=== PATIENT | female | born 1945 | race Caucasian/White ===

== ENCOUNTER 2022-10-03 23:05 | Inpatient (IN) | payer MEDICARE, OTHER ==
[~2022-10-03] VITALS: Ht 157.5 cm; Wt 40.7 kg
[2022-10-03 23:57] LABS: Basophils # (auto) 0 10 ^3/uL (0-0.2); Eosinophils # (auto) 0.4 10 ^3/uL (0-0.8); Mean Corpuscular Hgb Conc. 34.6 g/dL (32.0-36.0); Monocytes # (auto) 0.3 10 ^3/uL (0-1.3)
[2022-10-03 23:59] LABS: Basophils % (auto) 0.2 % (0.0-2.0); Eosinophils % (auto) 4.3 % (0.0-7.0); Hematocrit 36.8 % (36.0-46.0); Hemoglobin 12.7 g/dL (12.2-16.2); Lymphocytes % (auto) 22.5 % (10.0-50.0); Mean Corpuscular Hemoglobin 34.8 pg (28.0-32.0); Mean Corpuscular Volume 100.5 fL (80.0-100.0); Monocytes % (auto) 3.7 % (0.0-12.0); Neutrophils # (auto) 6.2 10 ^3/uL (1.6-8.6); Neutrophils % (auto) 69.3 % (37.0-80.0); Red Blood Cells 3.66 10^6/uL (4.0-5.20); Red Cell Distribution Width 12.9 % (11.8-14.3); White Blood Cell 8.9 10^3/uL (4.4-10.8)
[2022-10-04 00:05] LABS: Albumin 3.4 g/dL (3.4-5.0); BUN/Creatinine Ratio 34.4 (10.0-20.0); Calcium 9.5 mg/dL (8.5-10.1); Magnesium 2.2 mg/dL (1.6-2.6); Potassium 4.1 mmol/L (3.5-5.1)
[2022-10-04 00:07] LABS: Bilirubin, Total 0.2 mg/dL (0.2-1.0); Total Protein 6.7 g/dL (6.4-8.2)
[2022-10-04 00:13] LABS: INR 0.9 (0.9-1.15); Partial Thromboplastin Time 22.6 sec (24.6-33.4)
[2022-10-04] MEDS ORDERED: methylPREDNISolone SOD SUCC 125 MG/2 ML VL IV ONE (01:45)
[2022-10-04 01:58] LABS: Urine Amorphous Crystal FEW /hpf (None Seen); Urine Bacteria NONE SEEN /hpf (None Seen); Urine Blood Negative /uL (Negative); Urine Specific Gravity 1.015 (1.001-1.035); Urine WBC <1 /hpf (0 - 5)
[2022-10-04] MEDS ORDERED: MORPHINE SULFATE INJ 2 MG/ml SYRG IV PRN (02:30)
[2022-10-04] MEDS ORDERED: ALBUTEROL SULF 2.5 MG/0.5ML(0.5%) NEB SOLN NEB PRN (02:30)
[2022-10-04] MEDS ORDERED: ACETAMINOPHEN 325 MG TAB PO PRN ×2 (02:30)
[2022-10-04] MEDS ORDERED: NITROGLYCERIN 0.4 MG SL TAB SL PRN (02:30)
[2022-10-04] MEDS: ONDANSETRON HCL 4 MG/2 ML VIAL IV PRN ×2 (04:24→15:45)
[2022-10-04] MEDS: TEMAZEPAM 15 MG CAP PO PRN ×2 (04:25→23:00)
[2022-10-04] MEDS: PARoxetine 20 MG TAB PO SCH (09:26)
[2022-10-04] MEDS: ENOXAPARIN SOD 40 MG/0.4 ML SYRINGE SC SCH (09:30)
[2022-10-04] MEDS ORDERED: PANTOPRAZOLE 40 MG TAB PO SCH (10:00)
[2022-10-04] MEDS ORDERED: MORPHINE SULF 15mg ER tab PO ONE (10:45)
[2022-10-04 11:10] VITALS: BP 166/119
[2022-10-04] MEDS: MORPHINE SULF 15mg ER tab PO SCH ×2 (13:49→22:48)
[2022-10-04 22:00] VITALS: BP 140/70
[2022-10-05] MEDS ORDERED: LORA0.5T20 PO (00:31)
[2022-10-05] MEDS ORDERED: PROC10TA2 (00:31)
[2022-10-05] MEDS ORDERED: MORP1TAB12 PO (00:31)
[2022-10-05] MEDS ORDERED: DIVA250T4 PO (00:34)
[2022-10-05] MEDS ORDERED: CHOL1TAB42 PO (00:34)
[2022-10-05 05:00] VITALS: BP 125/52
[2022-10-05] MEDS: MORPHINE SULF 15mg ER tab PO SCH ×2 (05:35→14:00)
[2022-10-05 09:05] VITALS: BP 120/74
[2022-10-05] MEDS: ENOXAPARIN SOD 40 MG/0.4 ML SYRINGE SC SCH (09:28)
[2022-10-05] MEDS: PARoxetine 20 MG TAB PO SCH (09:28)
== END 2022-10-05 14:50 | disposition home or self-care (01) | DRG 313 ==
LOC: EDBD 23:05 → ER 23:05 → TELE 10-04 02:22 → TELE-CENTR 10-04 21:10
PROVIDERS: ADMIT Nurse Practitioner; ATTEND Internal Medicine Geriatric Medicine
DX: R07.89 Other chest pain (principal); J96.10 Chronic respiratory failure, unspecified whether with hypoxia or hypercapnia; I49.1 Atrial premature depolarization; R00.2 Palpitations; F41.1 Generalized anxiety disorder; I95.9 Hypotension, unspecified; Z20.822 Contact with and (suspected) exposure to COVID-19; Z82.0 Family history of epilepsy and other diseases of the nervous system; Z85.3 Personal history of malignant neoplasm of breast; Z90.13 Acquired absence of bilateral breasts and nipples; Z99.81 Dependence on supplemental oxygen; Z88.2 Allergy status to sulfonamides; Z90.49 Acquired absence of other specified parts of digestive tract; G40.909 Epilepsy, unspecified, not intractable, without status epilepticus; J44.9 Chronic obstructive pulmonary disease, unspecified
CPT/HCPCS: 36415; 71045; 80053; 81001; 83735; 83880; 84443; 84484; 85025; 85379; 85610; 85730; 87426; 93005; 93306; G0378; J2405

== ENCOUNTER 2023-04-25 17:01 | Inpatient (IN) | payer OTHER ==
[~2023-04-25] VITALS: Ht 154.9 cm; Wt 41.8 kg
[~2023-04-25 17:01] MED LIST: CHOL1TAB42 PO; DIVA250T4 PO; LORA-1121 PO; MORP1TAB12 PO; PROC10TA6
[2023-04-25 17:30] VITALS: PULSE 117; RESP 22; O2SAT 96
[2023-04-25] MEDS ORDERED: methylPREDNISolone SOD SUCC 40 MG/ML VL IV ONE (17:30)
[2023-04-25] MEDS ORDERED: IPRATROPIUM BROM 0.5 MG/2.5ML INH SOL HHN ONE (17:30)
[2023-04-25] MEDS ORDERED: ALBUTEROL SULF 2.5 MG/0.5ML(0.5%) NEB SOLN HHN ONE (17:30)
[2023-04-25 18:11] LABS: Basophils # (auto) 0 10 ^3/uL (0-0.2); Eosinophils # (auto) 0.1 10 ^3/uL (0-0.8); Hemoglobin 12.3 g/dL (12.2-16.2); Lymphocytes # (auto) 1.7 10 ^3/uL (0.4-5.4); Lymphocytes % (auto) 12.1 % (10.0-50.0); Mean Corpuscular Hemoglobin 34.1 pg (28.0-32.0); Monocytes # (auto) 0.6 10 ^3/uL (0-1.3); Monocytes % (auto) 4.2 % (0.0-12.0); Neutrophils % (auto) 82.5 % (37.0-80.0); Red Blood Cells 3.62 10^6/uL (4.0-5.20); Red Cell Distribution Width 12.4 % (11.8-14.3)
[2023-04-25 18:12] LABS: Basophils % (auto) 0.2 % (0.0-2.0); Hematocrit 36.1 % (36.0-46.0); Mean Corpuscular Hgb Conc. 34.2 g/dL (32.0-36.0); Mean Corpuscular Volume 99.7 fL (80.0-100.0); Neutrophils # (auto) 11.4 10 ^3/uL (1.6-8.6); White Blood Cell 13.8 10^3/uL (4.4-10.8)
[2023-04-25 18:31] LABS: Alanine Aminotransferase 10 U/L (7-40); Albumin 4.2 g/dL (3.2-4.8); Alkaline Phosphatase 71 U/L (46-116); Anion Gap 8 (5-15); Aspartate Aminotransferase 17 U/L (13-40); BUN/Creatinine Ratio 20.3 (10.0-20.0); Bilirubin, Total 0.2 mg/dL (0.2-1.0); Blood Urea Nitrogen 13 mg/dL (9-23); Calcium 10.1 mg/dL (8.7-10.4); Carbon Dioxide 28 mmol/L (20-30); Chloride 104 mmol/L (98-107); Glucose 143 mg/dL (74-106); Magnesium 1.8 mg/dL (1.6-2.6); Potassium 4.1 mmol/L (3.5-5.1); Sodium 140 mmol/L (136-145); Total Protein 6.6 g/dL (5.7-8.2)
[2023-04-25 19:54] VITALS: PULSE 108; RESP 12; O2SAT 97
[2023-04-25] MEDS ORDERED: cefTRIAXone 1GM/50ML D5W 50 ML IV ONE (20:45)
[2023-04-25] MEDS ORDERED: DOCUSATE SOD 100 MG CAP PO PRN (20:45)
[2023-04-25] MEDS ORDERED: MORPHINE SULFATE INJ 2 MG/ml SYRG IV PRN (20:45)
[2023-04-25] MEDS ORDERED: NITROGLYCERIN 0.4 MG SL TAB SL PRN (20:45)
[2023-04-25] MEDS ORDERED: ACETAMINOPHEN 325 MG TAB PO PRN (20:45)
[2023-04-25] MEDS ORDERED: HYDROcodone-ACET 5/325MG TAB PO PRN (20:45)
[2023-04-25] MEDS ORDERED: PARO1TAB33 PO (20:47)
[2023-04-25] MEDS ORDERED: DIVA125C8 PO (20:47)
[2023-04-25] MEDS ORDERED: MORP15TA PO (20:47)
[2023-04-25] MEDS ORDERED: LORazepam 0.5 MG TAB PO PRN (21:00)
[2023-04-25] MEDS: ONDANSETRON HCL 4 MG/2 ML VIAL IV PRN (21:17)
[2023-04-25] MEDS: MORPHINE SULFATE INJ 2 MG/ml SYRG IV PRN (21:18)
[2023-04-25 21:52] LABS: Urine Bacteria NONE SEEN /hpf (None Seen); Urine Blood Negative /uL (Negative); Urine Clarity Clear (Clear); Urine Color Yellow (Yellow); Urine Protein, UAD Negative (Negative); Urine Specific Gravity 1.017 (1.001-1.035); Urine Urobilinogen Normal (Negative); Urine WBC <1 /hpf (0 - 5); Urine pH 5.5 (5.0-8.0)
[2023-04-25] MEDS: DIVALPROEX SODIUM 125 MG PO SCH (22:00)
[2023-04-25 22:59] VITALS: BP 118/52; PULSE 102; RESP 20; TEMP 98.4; O2SAT 98
[2023-04-25] MEDS: methylPREDNISolone SOD SUCC 40 MG/ML VL IV SCH (23:10)
[2023-04-26] VITALS (12 sets, daily range): BP systolic 118–156; BP diastolic 42–86; PULSE 82–117; RESP 16–18; TEMP 97–98.9; O2SAT 94–100
[2023-04-26] MEDS: MORPHINE SULFATE INJ 2 MG/ml SYRG IV PRN ×2 (01:58→08:27)
[2023-04-26 06:24] LABS: Alkaline Phosphatase 59 U/L (46-116); Anion Gap 7 (5-15); Aspartate Aminotransferase 20 U/L (13-40); BUN/Creatinine Ratio 11.8 (10.0-20.0); Basophils # (auto) 0 10 ^3/uL (0-0.2); Blood Urea Nitrogen 8 mg/dL (9-23); Calcium 9.9 mg/dL (8.7-10.4); Carbon Dioxide 24 mmol/L (20-30); Chloride 104 mmol/L (98-107); Eosinophils # (auto) 0 10 ^3/uL (0-0.8); Glucose 141 mg/dL (74-106); Hemoglobin 11.4 g/dL (12.2-16.2); Monocytes % (auto) 0.6 % (0.0-12.0); Potassium 4.5 mmol/L (3.5-5.1); White Blood Cell 8.1 10^3/uL (4.4-10.8)
[2023-04-26 06:25] LABS: Bilirubin, Total 0.2 mg/dL (0.2-1.0); Total Protein 6.5 g/dL (5.7-8.2)
[2023-04-26 06:26] LABS: Basophils % (auto) 0.1 % (0.0-2.0); Lymphocytes # (auto) 1.1 10 ^3/uL (0.4-5.4); Lymphocytes % (auto) 13.5 % (10.0-50.0); Mean Corpuscular Hemoglobin 35.5 pg (28.0-32.0); Mean Corpuscular Hgb Conc. 34.7 g/dL (32.0-36.0); Mean Corpuscular Volume 102.4 fL (80.0-100.0); Monocytes # (auto) 0 10 ^3/uL (0-1.3); Neutrophils # (auto) 6.9 10 ^3/uL (1.6-8.6); Neutrophils % (auto) 85.8 % (37.0-80.0); Red Blood Cells 3.22 10^6/uL (4.0-5.20); Red Cell Distribution Width 12.7 % (11.8-14.3)
[2023-04-26] MEDS: DIVALPROEX SODIUM 125 MG PO SCH (06:30)
[2023-04-26] MEDS: LEVALBUTEROL HCL 1.25 MG/3 ML NEB NEB SCH ×5 (06:32→22:51)
[2023-04-26] MEDS: IPRATROPIUM BROM 0.5 MG/2.5ML INH SOL NEB SCH ×5 (06:32→22:51)
[2023-04-26 06:37] LABS: Alanine Aminotransferase < 9 U/L (7-40); Sodium 135 mmol/L (136-145)
[2023-04-26 08:14] LABS: Macrocytosis Slight; Platelet Estimate Decreased
[2023-04-26] MEDS: methylPREDNISolone SOD SUCC 40 MG/ML VL IV SCH ×2 (08:26→22:25)
[2023-04-26] MEDS: cefTRIAXone 1GM/50ML D5W 50 ML IV SCH (08:27)
[2023-04-26] MEDS: PARoxetine 20 MG TAB PO SCH (08:27)
[2023-04-26] MEDS: ONDANSETRON HCL 4 MG/2 ML VIAL IV PRN (09:17)
[2023-04-26] MEDS ORDERED: PANTOPRAZOLE 40 MG TAB PO SCH (10:00)
[2023-04-26] MEDS: MORPHINE SULF 15mg ER tab PO SCH ×2 (11:30→22:25)
[2023-04-26] MEDS: LORazepam 0.5 MG TAB PO PRN (12:47)
[2023-04-26] MEDS ORDERED: CHOL1TAB28 PO (16:36)
[2023-04-26] MEDS ORDERED: PROC10TA6 PO (16:36)
[2023-04-26] MEDS ORDERED: MORP15TA PO (16:36)
[2023-04-26] MEDS ORDERED: LORA-1121 PO (16:36)
[2023-04-26] MEDS ORDERED: DIVA250T12 PO (16:36)
[2023-04-26] MEDS ORDERED: PAR20T PO (16:36)
[2023-04-27] VITALS (12 sets, daily range): BP systolic 108–141; BP diastolic 50–61; PULSE 66–144; RESP 16–20; TEMP 98.3–98.5; O2SAT 95–100
[2023-04-27] MEDS ORDERED: DIGOXIN (250MCG/ML) 2 ML AMPULE ONE (09:34)
[2023-04-27] MEDS: cefTRIAXone 1GM/50ML D5W 50 ML IV SCH (09:42)
[2023-04-27] MEDS: LORazepam 0.5 MG TAB PO PRN ×2 (09:42→20:39)
[2023-04-27] MEDS: methylPREDNISolone SOD SUCC 40 MG/ML VL IV SCH ×2 (09:42→22:33)
[2023-04-27] MEDS: PARoxetine 20 MG TAB PO SCH (09:42)
[2023-04-27] MEDS: MORPHINE SULF 15mg ER tab PO SCH ×2 (10:00→22:34)
[2023-04-27] MEDS: LEVALBUTEROL HCL 1.25 MG/3 ML NEB NEB SCH (13:35)
[2023-04-27] MEDS: IPRATROPIUM BROM 0.5 MG/2.5ML INH SOL NEB SCH ×3 (13:35→23:09)
[2023-04-27] MEDS ORDERED: METOPROLOL SUCCINATE XL 50 MG TAB PO ONE (16:15)
[2023-04-27] MEDS: APIXABAN 5 MG TAB PO SCH (22:33)
[2023-04-28] VITALS (7 sets, daily range): BP systolic 127–132; BP diastolic 48–58; PULSE 53–97; RESP 14–18; TEMP 97.7–98.2; O2SAT 96–100
[2023-04-28] MEDS: IPRATROPIUM BROM 0.5 MG/2.5ML INH SOL NEB SCH ×2 (07:57→13:55)
[2023-04-28] MEDS: methylPREDNISolone SOD SUCC 40 MG/ML VL IV SCH (09:19)
[2023-04-28] MEDS: APIXABAN 5 MG TAB PO SCH (09:20)
[2023-04-28] MEDS: MORPHINE SULF 15mg ER tab PO SCH (09:20)
[2023-04-28] MEDS: cefTRIAXone 1GM/50ML D5W 50 ML IV SCH (09:20)
[2023-04-28] MEDS: PARoxetine 20 MG TAB PO SCH (09:21)
[2023-04-28] MEDS ORDERED: METOPROLOL SUCCINATE XL 50 MG TAB PO SCH (10:00)
[2023-04-28] MEDS ORDERED: MORP1CAP9 PO ×2 (11:04)
[2023-04-28] MEDS ORDERED: METH4PAK PO (11:04)
[2023-04-28] MEDS ORDERED: LORA-1121 PO (11:04)
[2023-04-28] MEDS ORDERED: METO25TA36 PO (11:04)
[2023-04-28] MEDS ORDERED: APIX5TAB PO (11:04)
[2023-04-28] MEDS ORDERED: MORP1TAB12 PO (15:23)
== END 2023-04-28 16:30 | disposition home or self-care (01) | DRG 189 ==
LOC: EDBD 17:01 → ER 17:01 → TELE 20:42 → TELE-EAST 23:32
PROVIDERS: ADMIT Nurse Practitioner Family; ATTEND Internal Medicine Geriatric Medicine
DX: J96.20 Acute and chronic respiratory failure, unspecified whether with hypoxia or hypercapnia (principal); J44.1 Chronic obstructive pulmonary disease with (acute) exacerbation; R64 Cachexia; Z68.1 Body mass index [BMI] 19.9 or less, adult; G40.909 Epilepsy, unspecified, not intractable, without status epilepticus; F32.A Depression, unspecified; G89.4 Chronic pain syndrome; I48.0 Paroxysmal atrial fibrillation; Z90.13 Acquired absence of bilateral breasts and nipples; Z99.81 Dependence on supplemental oxygen; Z85.3 Personal history of malignant neoplasm of breast; Z90.49 Acquired absence of other specified parts of digestive tract
CPT/HCPCS: 36415; 71045; 74176; 80053; 80164; 81001; 83735; 83880; 84484; 85025; 87040; 87086; 93005; 93306; 94640; 97110; 97116; 97163; 97530; G0378; J0696; J2405

== ENCOUNTER 2023-06-10 14:02 | Inpatient (IN) | payer OTHER ==
[~2023-06-10] VITALS: Ht 154.9 cm; Wt 87.7 kg
[~2023-06-10 14:02] MED LIST changes: +APIX5TAB PO; +CHOL1TAB28 PO; -CHOL1TAB42 PO; +DIVA250T12 PO; -DIVA250T4 PO; +METH4PAK PO; +METO25TA36 PO; +MORP15TA PO; +PAR20T PO; -PROC10TA6; +PROC10TA6 PO
[2023-06-10 14:38] LABS: Basophils # (auto) 0 10 ^3/uL (0-0.2); Basophils % (auto) 0.4 % (0.0-2.0); Eosinophils # (auto) 0.4 10 ^3/uL (0-0.8); Eosinophils % (auto) 4.5 % (0.0-7.0); Lymphocytes # (auto) 2.1 10 ^3/uL (0.4-5.4); Monocytes # (auto) 0.4 10 ^3/uL (0-1.3); Monocytes % (auto) 4.5 % (0.0-12.0); Red Cell Distribution Width 12.8 % (11.8-14.3)
[2023-06-10 14:40] LABS: Hemoglobin 12.2 g/dL (12.2-16.2); Lymphocytes % (auto) 24.9 % (10.0-50.0); Mean Corpuscular Hemoglobin 33.6 pg (28.0-32.0); Mean Corpuscular Hgb Conc. 32.9 g/dL (32.0-36.0); Mean Corpuscular Volume 102.1 fL (80.0-100.0); Neutrophils # (auto) 5.5 10 ^3/uL (1.6-8.6); Neutrophils % (auto) 65.7 % (37.0-80.0); Red Blood Cells 3.62 10^6/uL (4.0-5.20); White Blood Cell 8.4 10^3/uL (4.4-10.8)
[2023-06-10 14:55] LABS: Albumin 3.9 g/dL (3.2-4.8); Alkaline Phosphatase 57 U/L (46-116); Anion Gap 5 (5-15); Aspartate Aminotransferase 16 U/L (13-40); BUN/Creatinine Ratio 19.7 (10.0-20.0); Blood Urea Nitrogen 12 mg/dL (9-23); Calcium 9.4 mg/dL (8.7-10.4); Carbon Dioxide 28 mmol/L (20-30); Chloride 106 mmol/L (98-107); Glucose 106 mg/dL (74-106); Potassium 4.3 mmol/L (3.5-5.1); Sodium 139 mmol/L (136-145)
[2023-06-10 14:56] LABS: Alanine Aminotransferase < 9 U/L (7-40); Bilirubin, Total 0.3 mg/dL (0.2-1.0); Total Protein 5.8 g/dL (5.7-8.2)
[2023-06-10 15:42] LABS: INR 0.98 (0.9-1.15); Prothrombin Time 10.3 sec (9.3-11.8)
[2023-06-10] MEDS ORDERED: methylPREDNISolone SOD SUCC 125 MG/2 ML VL IV ONE (18:00)
[2023-06-10] MEDS ORDERED: DOCUSATE SOD 100 MG CAP PO PRN (18:00)
[2023-06-10] MEDS ORDERED: MORPHINE SULFATE 4 MG/ML SYR/VIAL IV ONE (20:30)
[2023-06-10] MEDS: ONDANSETRON HCL 4 MG/2 ML VIAL IV PRN (20:47)
[2023-06-10] MEDS: APIXABAN 5 MG TAB PO SCH (21:41)
[2023-06-10] MEDS: MORPHINE SULF 15mg ER tab PO SCH (21:41)
[2023-06-10 22:39] LABS: Rapid Influenza A Negative (Negative); Rapid Influenza B Negative (Negative)
[2023-06-10 22:40] LABS: COVID19 ANTIGEN SOFIA FIA NEGATIVE (NEGATIVE)
[2023-06-11] VITALS (7 sets, daily range): BP systolic 109–121; BP diastolic 60–97; PULSE 62–121; RESP 16–18; TEMP 97.7–98.4; O2SAT 95–100
[2023-06-11 04:31] LABS: Basophils # (auto) 0 10 ^3/uL (0-0.2); Basophils % (auto) 0.1 % (0.0-2.0); Eosinophils # (auto) 0 10 ^3/uL (0-0.8); Hematocrit 36.8 % (36.0-46.0); Hemoglobin 12.4 g/dL (12.2-16.2); Lymphocytes # (auto) 1.1 10 ^3/uL (0.4-5.4); Mean Corpuscular Hemoglobin 33.8 pg (28.0-32.0); Mean Corpuscular Hgb Conc. 33.8 g/dL (32.0-36.0); Mean Corpuscular Volume 99.9 fL (80.0-100.0); Monocytes # (auto) 0 10 ^3/uL (0-1.3); Monocytes % (auto) 0.4 % (0.0-12.0); Neutrophils # (auto) 5.6 10 ^3/uL (1.6-8.6); Neutrophils % (auto) 83.5 % (37.0-80.0); Red Blood Cells 3.68 10^6/uL (4.0-5.20); Red Cell Distribution Width 12.8 % (11.8-14.3); White Blood Cell 6.7 10^3/uL (4.4-10.8)
[2023-06-11 05:03] LABS: Albumin 4.5 g/dL (3.2-4.8); Alkaline Phosphatase 63 U/L (46-116); Anion Gap 4 (5-15); Aspartate Aminotransferase 14 U/L (13-40); Bilirubin, Total 0.5 mg/dL (0.2-1.0); Blood Urea Nitrogen 13 mg/dL (9-23); Carbon Dioxide 30 mmol/L (20-30); Chloride 102 mmol/L (98-107); Glucose 146 mg/dL (74-106); Potassium 4.9 mmol/L (3.5-5.1); Sodium 136 mmol/L (136-145)
[2023-06-11 05:04] LABS: Alanine Aminotransferase < 9 U/L (7-40)
[2023-06-11] MEDS: methylPREDNISolone SOD SUCC 40 MG/ML VL IV SCH ×3 (07:25→21:36)
[2023-06-11] MEDS: PANTOPRAZOLE 40 MG/10 ML VIAL INJ IV SCH (10:39)
[2023-06-11] MEDS: PARoxetine 20 MG TAB PO SCH (10:40)
[2023-06-11] MEDS: CHOLECALCIFEROL (VITD3) 2,000 UNIT CAP/TAB PO SCH (10:41)
[2023-06-11] MEDS: APIXABAN 5 MG TAB PO SCH ×2 (10:42→21:36)
[2023-06-11] MEDS: MORPHINE SULF 15mg ER tab PO SCH ×2 (10:42→21:36)
[2023-06-11] MEDS: METOPROLOL SUCCINATE XL 50 MG TAB PO SCH (10:45)
[2023-06-11] MEDS: PROCHLORPERAZINE MALEATE 10 MG TAB PO SCH (12:27)
[2023-06-12 05:00] VITALS: BP 107/46; PULSE 69; RESP 15; TEMP 98.3; O2SAT 100
[2023-06-12] MEDS: methylPREDNISolone SOD SUCC 40 MG/ML VL IV SCH ×2 (05:31→14:09)
[2023-06-12 08:00] VITALS: BP 120/70; PULSE 61; PULSE 71; RESP 18; TEMP 98.3; O2SAT 98
[2023-06-12] MEDS ORDERED: ALBUTEROL MEDNEB 2.5 mg/3ml NEB NEB PRN (08:30)
[2023-06-12] MEDS ORDERED: IPRATROPIUM BROM 0.5 MG/2.5ML INH SOL NEB PRN (08:30)
[2023-06-12] MEDS: ONDANSETRON HCL 4 MG/2 ML VIAL IV PRN (08:32)
[2023-06-12 09:00] VITALS: BP 120/70; PULSE 71; RESP 18; TEMP 98.3; O2SAT 98
[2023-06-12] MEDS ORDERED: METH4PAK PO (09:54)
[2023-06-12] MEDS ORDERED: LORazepam 0.5 MG TAB PO PRN (10:00)
[2023-06-12 10:05] VITALS: BP 120/70; PULSE 71; RESP 18; TEMP 98.3; O2SAT 98
[2023-06-12 10:16] LABS: Chloride 105 mmol/L (98-107); Potassium 4.2 mmol/L (3.5-5.1); Sodium 139 mmol/L (136-145)
[2023-06-12 10:17] LABS: Anion Gap 9 (5-15); Calcium 10.2 mg/dL (8.5-10.1); Carbon Dioxide 25 mmol/L (20-30)
[2023-06-12 10:19] LABS: Basophils # (auto) 0 10 ^3/uL (0-0.2); Basophils % (auto) 0.1 % (0.0-2.0); Eosinophils # (auto) 0 10 ^3/uL (0-0.8); Hematocrit 33.9 % (36.0-46.0); Hemoglobin 11.2 g/dL (12.2-16.2); Lymphocytes # (auto) 0.8 10 ^3/uL (0.4-5.4); Lymphocytes % (auto) 5.6 % (10.0-50.0); Mean Corpuscular Hemoglobin 33.7 pg (28.0-32.0); Mean Corpuscular Hgb Conc. 33.2 g/dL (32.0-36.0); Mean Corpuscular Volume 101.5 fL (80.0-100.0); Monocytes # (auto) 0.3 10 ^3/uL (0-1.3); Monocytes % (auto) 1.8 % (0.0-12.0); Neutrophils # (auto) 13.6 10 ^3/uL (1.6-8.6); Neutrophils % (auto) 92.5 % (37.0-80.0); Red Blood Cells 3.34 10^6/uL (4.0-5.20); Red Cell Distribution Width 12.9 % (11.8-14.3); White Blood Cell 14.7 10^3/uL (4.4-10.8)
[2023-06-12 10:22] LABS: BUN/Creatinine Ratio 29.3 (10.0-20.0); Blood Urea Nitrogen 22 mg/dL (9-23); Glucose 163 mg/dL (74-106)
[2023-06-12] MEDS: CHOLECALCIFEROL (VITD3) 2,000 UNIT CAP/TAB PO SCH (11:00)
[2023-06-12] MEDS: PROCHLORPERAZINE MALEATE 10 MG TAB PO SCH (11:00)
[2023-06-12] MEDS ORDERED: UMEC1AER IN (11:00)
[2023-06-12] MEDS: PARoxetine 20 MG TAB PO SCH (11:01)
[2023-06-12] MEDS: MORPHINE SULF 15mg ER tab PO SCH (11:01)
[2023-06-12] MEDS: APIXABAN 5 MG TAB PO SCH (11:01)
[2023-06-12] MEDS: PANTOPRAZOLE 40 MG/10 ML VIAL INJ IV SCH (11:02)
[2023-06-12] MEDS: METOPROLOL SUCCINATE XL 50 MG TAB PO SCH (11:03)
[2023-06-12 11:12] VITALS: BP 120/70; PULSE 74; RESP 18; TEMP 98.3; O2SAT 98
[2023-06-12] MEDS ORDERED: APIX5TAB PO (11:24)
== END 2023-06-12 16:12 | disposition home or self-care (01) | DRG 189 ==
LOC: ER 14:02 → EDBD 14:02 → TELE 18:13 → TELE-CENTR 06-11 06:00
PROVIDERS: ADMIT Nurse Practitioner Family; ATTEND Internal Medicine Geriatric Medicine
DX: J96.21 Acute and chronic respiratory failure with hypoxia (principal); J44.1 Chronic obstructive pulmonary disease with (acute) exacerbation; I48.0 Paroxysmal atrial fibrillation; F32.A Depression, unspecified; F41.9 Anxiety disorder, unspecified; G89.4 Chronic pain syndrome; Z60.2 Problems related to living alone; R25.1 Tremor, unspecified; Z20.822 Contact with and (suspected) exposure to COVID-19; I10 Essential (primary) hypertension; R56.9 Unspecified convulsions; Z82.0 Family history of epilepsy and other diseases of the nervous system; Z85.3 Personal history of malignant neoplasm of breast; Z90.13 Acquired absence of bilateral breasts and nipples; Z99.81 Dependence on supplemental oxygen; Z90.49 Acquired absence of other specified parts of digestive tract; Z88.2 Allergy status to sulfonamides
CPT/HCPCS: 36415; 71045; 80048; 80053; 83880; 84484; 85025; 85379; 85610; 87426; 87804; 93005; 96374; 96375; 99291; C9113; G0378; J2405; Q0164